=== PATIENT | male | born 1960 | race African-American/Black ===

== ENCOUNTER 2019-08-01 19:58 | Emergency (ER) | payer OTHER, SELFPAY ==
--- NOTE | ~2019-08-01 | XR_ITS ---
EXAMINATION: XR shoulder LT min 2V EXAM DATE: 08/01/2019 20:23 INDICATION: Left shoulder pain. Possible dislocation. TECHNIQUE: The following left shoulder projections obtained: frontal projection with internal rotatio n, frontal projection with external rotation, Grashey, and scapular Y view (4+ views). Comparison is made to prior examination from 06/01/2017. FINDINGS: There is large chronic left humeral head Hill-Sachs compression deformity, unchanged compar ed to 2018. There are no acute fractures or dislocations identified. There is no subcutaneous gas. The soft tissue is unremarkable. There are no radiopaque foreign bodies. There is mild acromioclav icular and glenohumeral primary osteoarthritis. There are old left rib fractures posteriorly. IMPRESSION: 1. Chronic left Hill-Sachs deformity. 2. Mild shoulder osteoarthritis. Reviewed, dictated and finalized at location A.
[2019-08-01 19:56] VITALS: BP 129/92; PULSE 84; RESP 18; TEMP 36.8; O2SAT 98
--- NOTE | 2019-08-01 20:03 | ED.UPPEXIN ---
HPI - Extremity Injury (Upper) General Chief Complaint: Extremity Injury, Upper <Talha Perez PA-C - Last Filed: 08/01/19 20:31> Stated Complaint: dislocated shoulder <Talha Perez PA-C - Last Filed: 08/01/19 20:31> Source: patient <Talha Perez PA-C - Last Filed: 08/01/19 20:31> Mode of arrival: EMS <Talha Perez PA-C - Last Filed: 08/01/19 20:31> Limitations: no limitations <Talha Perez PA-C - Last Filed: 08/01/19 20:31> History of Present Illness HPI narrative: Patient is a 59-year-old male who presents to emergency department for evaluation of dislocated shoulder patient was moving the shoulder today when it dislocated 2 hours ago. Patient was seen at urgent care was referred to emergency department for evaluation and reduction. On arrival patient notes moderate aching pain to the left shoulder worse with manipulation activity. Patient denies radicular symptoms paresthesias recent illness or sick contacts <Talha Perez PA-C - Last Filed: 08/01/19 20:31> Related Data Allergies/Adverse Reactions: Allergies Allergy/AdvReac Type Severity Reaction Status Date / Time No Known Allergies Allergy Unknown Verified 03/28/18 16:55 <Talha Perez PA-C - Last Filed: 08/01/19 20:31> Review of Systems Review of Systems: All systems reviewed & are unremarkable except as noted in HPI and below <Talha Perez PA-C - Last Filed: 08/01/19 20:31> PMFSH Past Medical History Medical History: Medical History (Updated 08/01/19 @ 20:07 by Talha Perez PA-C) Shoulder dislocation <Talha Perez PA-C - Last Filed: 08/01/19 20:31> Social History Social History: Social History (Updated 08/01/19 @ 20:04 by Talha Perez PA-C) Smoking status: Never smoker <Talha Perez PA-C - Last Filed: 08/01/19 20:31> Exam Narrative: Exam Narrative: GENERAL: Well-appearing, well-nourished, and in no acute distress. HEAD: Normocephalic, atraumatic. EYES: PERRLA and EOMI. ENT: Nares clear, no rhinorrhea or epistaxis. Mucous membranes moist. CHEST: Clear to auscultation. No respiratory distress. No wheezes rales or rhonchi HEART: Regular rate and rhythm. No murmur heard. Normal peripheral pulses. EXTREMITIES: Tenderness deformity of the left shoulder which was manually reduced normal range of motion after reduction SKIN: Warm, dry, no rash. NEURO: No focal deficits. Alert and oriented x3. Neurovascularly intact. Capillary refill less than 2 seconds PSYCH: Normal mood and affect. <Talha Perez PA-C - Last Filed: 08/01/19 20:31> Course Course Emergency Course: Patient in the room in no distress aware of case findings treatment plan and diagnosis agreeing to follow-up as directed <MAX Sosa Last Filed: 08/01/19 20:31> Vital Signs Vital signs: Vital Signs Temperature 36.8 C 08/01/19 19:56 Pulse Rate 84 08/01/19 19:56 Respiratory Rate 18 08/01/19 19:56 Blood Pressure 129/92 H 08/01/19 19:56 Pulse Oximetry 98 08/01/19 19:56 Temperature 36.8 C 08/01/19 19:56 Pulse Rate 84 08/01/19 19:56 Respiratory Rate 18 08/01/19 19:56 Blood Pressure 129/92 H 08/01/19 19:56 Pulse Oximetry 98 08/01/19 19:56 <MAX Sosa Last Filed: 08/01/19 20:31> Vital Signs Temperature 36.8 C 08/01/19 19:56 Pulse Rate 84 08/01/19 19:56 Respiratory Rate 18 08/01/19 19:56 Blood Pressure 129/92 H 08/01/19 19:56 Pulse Oximetry 98 08/01/19 19:56 Temperature 36.8 C 08/01/19 19:56 Pulse Rate 84 08/01/19 19:56 Respiratory Rate 18 08/01/19 19:56 Blood Pressure 129/92 H 08/01/19 19:56 Pulse Oximetry 98 08/01/19 19:56 <Kiera Guillen MD - Last Filed: 08/01/19 22:26> Procedures Orthopedic Joint Reduction Joint #1: Orthopedic Joint Reduction Date: 08/01/19 <Talha Perez PA-C - Last Filed: 08/01/19 20:31> Orthopedic Joint Redu
[2019-08-01] MEDS: IBUPROFEN 600 MG TABLET PO (20:20)
== END 2019-08-01 21:10 | disposition home or self-care (01) ==
PROVIDERS: Emergency Provider Emergency Medicine
DX: M24.412 Recurrent dislocation, left shoulder (principal); M19.012 Primary osteoarthritis, left shoulder
CPT/HCPCS: 23650; 73030; 99285; A9270

== ENCOUNTER 2020-01-13 19:26 | Emergency (ER) | payer OTHER, SELFPAY ==
--- NOTE | ~2020-01-13 | XR_ITS ---
EXAMINATION: XR shoulder LT min 2V DATE: 01/13/2020 20:17 INDICATION: Postreduction left shoulder dislocation TECHNIQUE: AP and transscapular Y views of the left shoulder were obtained. COMPARISON: None FINDINGS: Successful reduction of the previously dislocated left glenohumeral joint which is now in normal alig nment. Again seen is a chronic Hill-Sachs fracture deformity at the posterolateral aspect of the nima ral head. No other fractures identified. Specifically the rim of the glenoid appears to remain intact . Small marginal osteophytes along the posterior glenoid. Acromioclavicular joint is normal. Several old healed posterior left rib fractures. Visualized portions of the lungs are clear. IMPRESSION: Successful reduction of previous a dislocated left glenohumeral joint. No acute fractures identified. Reviewed, dictated and finalized at [facility]. 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
--- NOTE | ~2020-01-13 | XR_ITS ---
EXAMINATION: XR shoulder LT min 2V DATE: 01/13/2020 19:45 INDICATION: Left shoulder dislocation TECHNIQUE: AP and transscapular Y views of the left shoulder were obtained. COMPARISON: None FINDINGS: Anterior dislocation of the left humeral head with respect to the glenoid. There is a chronic Hill-Sa chs fracture deformity which is also evident on an earlier radiograph dated 08/11/2019. No definite ac oneida fracture identified. Acromioclavicular joint space is normal. Visualized lungs are clear.. IMPRESSION: Anterior left glenohumeral dislocation. Reviewed, dictated and finalized at location H. AL AMALGAM PROCESSOR
[2020-01-13 19:32] VITALS: BP 152/102; PULSE 95; RESP 18; TEMP 36.9; O2SAT 100
--- NOTE | 2020-01-13 19:38 | ED.UPPEXIN ---
HPI - Extremity Injury (Upper) General Chief Complaint: Extremity Injury, Upper <Jerry Hart MD - Last Filed: 01/13/20 20:41> Stated Complaint: shoulder pain <Jerry Hart MD - Last Filed: 01/13/20 20:41> Time Seen by Provider: 01/13/20 19:32 <Jerry Hart MD - Last Filed: 01/13/20 20:41> History of Present Illness HPI narrative: Patient is a 5-year-old male who presents ER with left shoulder dislocation. This is happened to him previously. Reports she was trying to pick himself up out of bed when his shoulder popped forwards. No numbness or tingling. No other issues. Has not seen orthopedics for this. <Jerry Hart MD - Last Filed: 01/13/20 20:41> Related Data Home Medications: Home Medications Medication Instructions Recorded Confirmed amlodipine 01/13/20 gabapentin 01/13/20 potassium chloride meq PO 01/13/20 sildenafil 01/13/20 <Jerry Hart MD - Last Filed: 01/13/20 20:41> Allergies/Adverse Reactions: Allergies Allergy/AdvReac Type Severity Reaction Status Date / Time No Known Allergies Allergy Unknown Verified 01/13/20 19:52 <Jerry Hart MD - Last Filed: 01/13/20 20:41> Review of Systems Musculoskeletal: Musculoskeletal: Reports arthralgias <Jerry Hart MD - Last Filed: 01/13/20 20:41> Comments: left shoulder deformity. <Jerry Hart MD - Last Filed: 01/13/20 20:41> Neurologic: Denies focal weakness and Denies numbness <Jerry Hart MD - Last Filed: 01/13/20 20:41> PMF Past Medical History Medical History: Medical History (Updated 01/13/20 @ 20:38 by Jerry Hart MD) Glaucoma Hyperlipidemia Hypertension Shoulder dislocation <Jerry Hart MD - Last Filed: 01/13/20 20:41> Surgical History Surgical History: Surgical History (Updated 01/13/20 @ 20:12 by Jerry Hart MD) No history of previous surgery <Jerry Hart MD - Last Filed: 01/13/20 20:41> Social History Social History: Social History (Updated 01/13/20 @ 20:13 by Jerry Hart MD) Smoking status: Never smoker Alcohol intake: current Alcohol use details: h/o alcoholism Substance use type: marijuana <Jerry Hart MD - Last Filed: 01/13/20 20:41> Exam Narrative: Exam Narrative: GENERAL: Well-appearing, well-nourished, and in no acute distress. HEAD: Normocephalic, atraumatic. CHEST: Clear to auscultation. No respiratory distress. HEART: Regular rate and rhythm. No murmur heard. Normal peripheral pulses. EXTREMITIES: Deformity of the left shoulder. Neurovascular tact distal to this. Limited range of motion of that shoulder due to dislocation. NEURO: Alert and oriented x3. PSYCH: Normal mood and affect. <Jerry Hart MD - Last Filed: 01/13/20 20:41> Course Course Emergency Course: Shoulder reduced. D/c with shoulder immobilizer and ortho f/u. <Jerry Hart MD - Last Filed: 01/13/20 20:41> Vital Signs Vital signs: Vital Signs Temperature 98.5 F 01/13/20 19:32 Pulse Rate 95 01/13/20 19:32 Respiratory Rate 18 01/13/20 19:32 Blood Pressure 152/102 H 01/13/20 19:32 Pulse Oximetry 100 01/13/20 19:32 Temperature 98.5 F 01/13/20 19:32 Pulse Rate 95 01/13/20 19:32 Respiratory Rate 18 01/13/20 19:32 Blood Pressure 152/102 H 01/13/20 19:32 Pulse Oximetry 100 01/13/20 19:32 <Jerry Hart MD - Last Filed: 01/13/20 20:41> Vital Signs Temperature 98.5 F 01/13/20 19:32 Pulse Rate 95 01/13/20 19:32 Respiratory Rate 18 01/13/20 19:32 Blood Pressure 152/102 H 01/13/20 19:32 Pulse Oximetry 100 01/13/20 19:32 Temperature 98.5 F 01/13/20 19:32 Pulse Rate 95 01/13/20 19:32 Respiratory Rate 18 01/13/20 19:32 Blood Pressure 152/102 H 01/13/20 19:32 Pulse Oximetry 100 01/13/20 19:32 <Familia Alcocer, - Last Filed: 01/13/20 20:20> Procedures Orthopedic J
[2020-01-13] MEDS: MORPHINE SULFATE (*CRX) 4 MG/ML INJ IV PUSH (19:49)
[2020-01-13 20:45] VITALS: BP 137/86; PULSE 76; RESP 16; TEMP 36.6; O2SAT 100
== END 2020-01-13 20:45 | disposition home or self-care (01) ==
PROVIDERS: Emergency Provider Emergency Medicine
DX: M24.412 Recurrent dislocation, left shoulder (principal); E78.5 Hyperlipidemia, unspecified; I10 Essential (primary) hypertension; H40.9 Unspecified glaucoma
CPT/HCPCS: 23650; 73030; 96374; 99285; J2270

== ENCOUNTER 2020-03-23 14:00 | Emergency (ER) | payer OTHER, SELFPAY ==
--- NOTE | ~2020-03-23 | XR_ITS ---
XR shoulder LT min 2V DATE: 03/23/2020 14:49 INDICATION: Dislocation TECHNIQUE: 2 views COMPARISON: 01/13/2020 postreduction left shoulder FINDINGS: There is anterior dislocation at the glenohumeral joint, the humeral head in subcoracoid po sition. No acute fracture is evident. Normal alignment at the acromioclavicular joint. IMPRESSION: Anterior glenohumeral joint dislocation Reviewed, dictated and finalized at location A. 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
[2020-03-23 14:12] VITALS: BP 121/73; PULSE 81; RESP 16; TEMP 36.2; O2SAT 96
--- NOTE | 2020-03-23 15:05 | ED.UPPEXIN ---
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 This is the third time something similar to that has happened in about the last 2 years He reports that the shoulder is always been easy to pop back in and he does not want to be put to sleep for it At some point he was probably referred to orthopedics he does not exactly remember but he does know that he could never get a hold of somebody's office and has not ever made a follow-up appointment He does not have any numbness or weakness or neurologic symptoms in the hand or arm MD complaint: injury to: left and shoulder Related Data Home Medications Medication Instructions Recorded Confirmed amlodipine 01/13/20 gabapentin 01/13/20 potassium chloride meq PO 01/13/20 sildenafil 01/13/20 Allergies Allergy/AdvReac Type Severity Reaction Status Date / Time No Known Allergies Allergy Unknown Verified 03/23/20 14:14 Review of Systems Musculoskeletal: Musculoskeletal: Reports no additional musculoskeletal complaints, Reports arthralgias and Reports joint swelling Neurologic: Denies focal weakness and Denies numbness PMFSH Past Medical History Medical History (Updated 03/23/20 @ 15:16 by Uday Franco MD) Glaucoma Hyperlipidemia Hypertension Shoulder dislocation Surgical History Surgical History (Updated 01/13/20 @ 20:12 by Jerry Hart MD) No history of previous surgery Social History Social History (Updated 01/13/20 @ 20:13 by Jerry Hart MD) Smoking status: Never smoker Alcohol intake: current Substance use type: marijuana Gender identity (if verbalized by the patient): Male Exam Const: General: no acute distress, well developed and awake Orientation/consciousness: patient oriented x3 (alert) Limitations: no limitations HENMT: Head: normocephalic and atraumatic Ears: external ears normal General nose exam: No nasal discharge present and no epistaxis Face and sinus: face symmetric Eyes: Conjunctivae: conjunctivae normal Sclera: sclerae normal EOM: EOMs intact bilaterally Neck: Neck: normal visual inspection, supple and no JVD Chest: Chest palpation & inspection: deferred Resp: Effort & Inspection: normal respiratory effort and not tachypneic Auscultation: other (BS =) Cardio: Heart sounds: no gallops GI: Inspection: normal to inspection Back/Spine/Pelvis: Thoracic/Lumbar Spine: thoracic and lumbar spine normal to inspection Skin: General skin exam: normal color and no rashes or lesions noted Neuro: General: patient oriented x3 (alert), moves all extremities and no focal motor deficits Cranial nerves: Yes facial symmetry Speech: normal speech Extrem: General: full ROM Other: Apparent anterior left shoulder dislocation, reduced ROM, intact distal pulses and nl sensation Psych: Affect: normal affect Course Vital Signs Vital signs: Vital Signs Temperature 36.2 C L 03/23/20 14:12 Pulse Rate 81 03/23/20 14:12 Respiratory Rate 16 03/23/20 14:12 Blood Pressure 121/73 03/23/20 14:12 Pulse Oximetry 96 03/23/20 14:12 Temperature 36.2 C L 03/23/20 14:12 Pulse Rate 81 03/23/20 14:12 Respiratory Rate 16 03/23/20 14:12 Blood Pressure 121/73 03/23/20 14:12 Pulse Oximetry 96 03/23/20 14:12 Procedures Orthopedic Joint Reduction Joint #1: Orthopedic Joint Reduction Date: 03/23/20 Orthopedic Joint Reduction Time: 15:00 Time Out Performed: Yes Side: left Joint Reduction Location: shoulder Analgesia: none Pre-Procedure Neuro Vascular Exam: normal Local Anesthesia: none
== END 2020-03-23 15:26 | disposition home or self-care (01) ==
PROVIDERS: Emergency Provider Emergency Medicine
DX: M24.412 Recurrent dislocation, left shoulder (principal); H40.9 Unspecified glaucoma; E78.5 Hyperlipidemia, unspecified; I10 Essential (primary) hypertension
CPT/HCPCS: 23650; 73030; 99285

== ENCOUNTER 2020-08-06 13:47 | Emergency (ER) | payer OTHER, SELFPAY ==
--- NOTE | ~2020-08-06 | CT_ITS ---
EXAMINATION: CTA chest PE protocol EXAM DATE: 08/06/2020 16:06 INDICATION: Shortness of breath with lower extremity swelling. TECHNIQUE: Spiral CTA of the chest (pulmonary arteries) was performed with 100 cc Omnipaque 350 intr avenous contrast injection. Images were acquired during the pulmonary arterial phase. Coronal maxi mum intensity projection 3D-reconstructions were created by the technologist on dedicated workstation . Axial, coronal and sagittal reformatted images were reviewed. The dose-length product (DLP) for t his examination was 412.16 mGy-cm. The exposure was tailored according to patient size (auto mA exp osure control), and iterative reconstruction (ASIR) was used as additional dose reduction technique. Comparison is made to prior examination from 1959. FINDINGS: Tracheostomy tube. Pulmonary arteries are well opacified and without intraluminal filling d efects. No thoracic aortic dissection. Some right apical scarring. Mild emphysema. There are no p leural or pericardial effusions. Tracheobronchial tree is patent. There is no mediastinal, hilar or axillary lymphadenopathy. There is no pneumothorax. The main, central pulmonary arteries are di lated which can indicate elevated pulmonary arterial pressure, pulmonary arterial hypertension. Hear t normal in size. No evidence of coronary arterial calcification. Upper abdomen is unremarkable. No osteoblastic or osteolytic lesions identified. There are old left rib fractures. IMPRESSION: No acute cardiopulmonary findings. Dilated pulmonary arteries. Mild emphysema. Reviewed, dictated and finalized at location B.
--- NOTE | ~2020-08-06 | US_ITS ---
EXAMINATION: US venous doppler LE EXAM DATE: 08/06/2020 15:44 INDICATION: Bilateral leg edema. TECHNIQUE: Multiple grayscale, color flow and Doppler images of the lower extremity deep venous syste ms bilaterally were obtained and reviewed. There is no prior study for comparison. FINDINGS: Right side: The right common femoral, femoral and profunda veins demonstrate normal color flow, respi ratory variation, augmentation and compressibility. Compressibility, color flow confirmed within the right popliteal, posterior tibial, peroneal, and greater saphenous veins. Left side: The left common femoral, femoral and profunda veins demonstrate normal color flow, respira tory variation, augmentation and compressibility. Compressibility, color flow confirmed within the l eft popliteal, posterior tibial, peroneal, and greater saphenous veins. IMPRESSION: 1. No lower extremity deep venous thrombosis bilaterally. Reviewed, dictated and finalized at location B.
[2020-08-06 13:51] VITALS: BP 114/74; PULSE 103; RESP 20; TEMP 36.7; O2SAT 97
[2020-08-06 14:26] VITALS: BP 117/76; PULSE 102; RESP 13; O2SAT 100
--- NOTE | 2020-08-06 14:40 | ED.GENADULT ---
HPI - General Adult General Chief complaint: Unspecified Stated complaint: swelling to feet Time Seen by Provider: 08/06/20 14:39 Source: patient Mode of arrival: ambulatory Limitations: no limitations History of Present Illness HPI narrative: Patient is a 60-year-old male with a history of throat cancer, status post tracheostomy, chemotherapy and radiation, currently in remission, who presents for evaluation of lower leg swelling and shortness of breath. Patient reports bilateral lower leg swelling, greater on the right side when compared to the left. He reports swelling all the way up to his right knee. He reports mild redness without calf pain. No history of DVT or PE. No history of coagulopathy. No recent car or air travel. Patient with numerous hospitalizations over the course of the past 5 months, most notably for cancer treatment at [facility]. All the patient's physicians, hematology, oncology are at that location. Patient denies fever, chills, cough or hemoptysis. No history of heart failure. Related Data Home Medications Medication Instructions Recorded Confirmed amlodipine 01/13/20 gabapentin 01/13/20 potassium chloride meq PO 01/13/20 sildenafil 01/13/20 Allergies Allergy/AdvReac Type Severity Reaction Status Date / Time No Known Allergies Allergy Unknown Verified 03/23/20 14:14 Review of Systems Review of Systems: Narrative: CONSTITUTIONAL: Denies fever, chills, or sweats. EYES: Denies visual changes, redness, or discharge. ENT: Denies rhinorrhea, congestion, sore throat, or otalgia. CARDIOVASCULAR: Denies chest pain, palpitations, reports lower leg swelling RESPIRATORY: Denies cough,denies dyspnea currently in room GASTROINTESTINAL: Denies abdominal pain, nausea, vomiting, or diarrhea. GENITOURINARY: Denies dysuria or hematuria. SKIN: Denies rash or itching. MUSCULOSKELETAL: Denies back pain, joint pain, or myalgia. NEUROLOGIC: Denies headache, numbness, or weakness. [facility] Past Medical History Medical History (Updated 08/06/20 @ 16:55 by Kiera Guillen MD) Glaucoma Hyperlipidemia Hypertension Shoulder dislocation Surgical History Surgical History (Updated 01/13/20 @ 20:12 by Jerry Hart MD) No history of previous surgery Social History Social History (Updated 08/06/20 @ 15:06 by Kiera Guillen MD) Smoking status: Former smoker Alcohol intake: current Substance use type: marijuana Gender identity (if verbalized by the patient): Male Exam Narrative: Exam Narrative: GENERAL: Awake, alert, conversant HEAD: Normocephalic, atraumatic. EYES: PERRLA and EOMI. ENT: Nares clear, no rhinorrhea or epistaxis. Mucous membranes moist. NECK: Supple. Tracheostomy tube in place. CHEST: No respiratory distress, breathing even and non labored HEART: Regular rate, sinus rhythm ABDOMEN:Non distended, non tender. G-tube in place. EXTREMITIES: Normal range of motion. Right lower extremity nonpitting edema to the knee, with mild erythema, no significant induration or streaking erythema. No abscess or ecchymoses. No petechiae. No evidence of necrotizing infection. No calf tenderness bilaterally. SKIN: Warm, dry, no rash. NEURO:No focal deficits. Alert and oriented x3 Course Vital Signs Vital signs: Vital Signs Temperature 36.7 C 08/06/20 13:51 Pulse Rate 103 H 08/06/20 13:51 Respiratory Rate 20 08/06/20 13:51 Blood Pressure 114/74 08/06/20 13:51 Pulse Oximetry 97 08/06/20 13:51 Temperature 36.7 C 08/06/20 13:51 Pulse Rate 96 08/06/20 16:16 Respiratory Rate 17 08/06/20 16:16 Blood Pressure 114/79 08/06/20 16:16 Pulse Oximetry 98 08/06/20 16:16 Medical Decision Making MDM Narrative Medical decision making narrative: Patient presented for evaluation of bilateral lower leg swelling, greater on the right than on the left. At the time of assessment, patient denies any other acute complaints. IV
--- NOTE | 2020-08-06 15:07 | ECG_ITS ---
Measurements Intervals [place] Rate: 86 P: 63 VA: 153 QRS: 23 QRSD: 84 T: 36 QT: 366 QTc: 440 Interpretive Statements SINUS RHYTHM MINIMAL Q WAVES- INFERIOR LEADS BORDERLINE ECG Electronically Signed On 08-06-2020 17:08:57 CDT by Pawel Smith D.O.
[2020-08-06 15:31] LABS: Basophils Percent Auto 0.2 % (0.2-1.2); Eosinophils Absolute Auto 0.1 K/mm3 (0-0.3); Eosinophils Percent Auto 1.4 % (0-4.4); Hematocrit 35.6 % (42.0-52.0); Hemoglobin 11.3 g/dL (14.0-18.0); Immature Granulocyte Absolute 0.06 K/mm3 (0.00-0.031); Immature Granulocyte Percent A 0.7 % (0-0.5); Lymphocytes Absolute Auto 0.58 K/mm3 (0.9-3.2); Mean Corpuscular HGB Conc 31.7 g/dl (32-36); Mean Corpuscular Hemoglobin 28.8 pg (26-34); Mean Corpuscular Volume 90.6 fl (80-100); Mean Platelet Volume 8.7 fl (7.4-10.4); Monocytes Absolute Auto 1.3 K/mm3 (0.1-0.6); Monocytes Percent Auto 15.1 % (2.6-8.5); Neutrophils Absolute Auto 6.3 K/mm3 (1.3-6.7); Neutrophils Percent Auto 75.6 % (45.5-73.1); Platelet Count Result 256 k/mm3 (150-375); Red Blood Count 3.93 M/mm3 (4.6-6.20); Red Cell Distribution Width 15.7 % (11.5-14.5); White Blood Count 8.3 K/mm3 (4.5-10.0)
[2020-08-06 15:40] LABS: Anion Gap 9 mmol/L (8-16); Blood Urea Nitrogen 38 mg/dL (9-20); Calcium 9.2 mg/dL (8.4-10.2); Carbon Dioxide 28 mmol/L (22-30); Chloride 99 mmol/L (98-107); Estimated CRCL calculation 51 ml/min; Estimated Glomerular Filt Rate 54; Glucose 99 mg/dL (75-110); Potassium 4.6 mmol/L (3.4-5.0); Sodium 136 mmol/L (137-145)
[2020-08-06 15:41] LABS: INR 0.9; Prothrombin Time 12.7 Seconds (11.1-14.7)
[2020-08-06 15:53] LABS: NT Pro B Type Natriuretic Pept 56 pg/mL (5-100); Troponin I < 0.012 ng/mL (0.000-0.034)
[2020-08-06 16:16] VITALS: BP 114/79; PULSE 96; RESP 17; O2SAT 98
[2020-08-06 17:20] VITALS: BP 127/83; PULSE 98; RESP 18; O2SAT 100
== END 2020-08-06 17:21 | disposition home or self-care (01) ==
PROVIDERS: Emergency Provider Emergency Medicine
DX: R60.0 Localized edema (principal); I12.9 Hypertensive chronic kidney disease with stage 1 through stage 4 chronic kidney disease, or unspecified chronic kidney disease; N18.9 Chronic kidney disease, unspecified; Z85.819 Personal history of malignant neoplasm of unspecified site of lip, oral cavity, and pharynx; Z92.21 Personal history of antineoplastic chemotherapy; Z92.3 Personal history of irradiation; E78.5 Hyperlipidemia, unspecified; H40.9 Unspecified glaucoma; Z87.891 Personal history of nicotine dependence; Z93.1 Gastrostomy status; R94.31 Abnormal electrocardiogram [ECG] [EKG]; J43.9 Emphysema, unspecified
CPT/HCPCS: 36415; 71275; 80048; 83880; 84484; 85025; 85610; 93005; 93970; 99284; Q9967

== ENCOUNTER 2020-09-17 15:25 | Emergency (ER) | payer OTHER, SELFPAY ==
--- NOTE | ~2020-09-17 | XR_ITS ---
EXAMINATION: XR G tube replacement w image INDICATION: Gastrostomy tube placement TECHNIQUE: Supine view of the upper abdomen is obtained on a single radiograph. COMPARISON: None available FINDINGS: A small amount of contrast has been injected into a gastrostomy which is seen within the st omach. The visualized lung bases are clear. IMPRESSION: 1. Gastrostomy tube in the stomach. Reviewed, dictated and finalized at location A.
[2020-09-17 16:01] VITALS: BP 128/70; PULSE 109; RESP 18; TEMP 36.8; O2SAT 98
--- NOTE | 2020-09-17 16:21 | ED.GENADULT ---
HPI - General Adult General Chief complaint: Unspecified Stated complaint: G TUBE FELL OUT Time Seen by Provider: 09/17/20 16:14 Source: patient Mode of arrival: ambulatory Limitations: no limitations History of Present Illness HPI narrative: Patient is a 60 year old male who presents for g tube that has come out. Patient reports placed at [facility] approximately 1 year ago. Patient reports came out this morning during tube feeding. Patient reports taping area off. Patient reports that this has not happened in the past. Patient denies pain. Patient reports g tube placed because of throat cancer. Patient also has a tracheostomy. He denies all other complaints at this time. Related Data Home Medications Medication Instructions Recorded Confirmed amlodipine 01/13/20 gabapentin 01/13/20 potassium chloride meq PO 01/13/20 sildenafil 01/13/20 Allergies Allergy/AdvReac Type Severity Reaction Status Date / Time No Known Allergies Allergy Unknown Verified 03/23/20 14:14 Review of Systems Review of Systems: Narrative: CONSTITUTIONAL: Denies fever, chills, or sweats. EYES: Denies visual changes, redness, or discharge. ENT: Denies rhinorrhea, congestion, sore throat, or otalgia. CARDIOVASCULAR: Denies chest pain, palpitations, or edema. RESPIRATORY: Denies cough or dyspnea. GASTROINTESTINAL: Denies abdominal pain, nausea, vomiting, or diarrhea. Reports G-tube dislodged. GENITOURINARY: Denies dysuria or hematuria. SKIN: Denies rash or itching. MUSCULOSKELETAL: Denies back pain, joint pain, or myalgia. NEUROLOGIC: Denies headache, numbness, dizziness, or weakness. PSYCHIATRIC: Denies anxiety or depression. [facility] Past Medical History Medical History Glaucoma Hyperlipidemia Hypertension Shoulder dislocation Surgical History Surgical History No history of previous surgery Social History Social History Smoking status: Former smoker Alcohol intake: current Alcohol use details: h/o alcoholism Substance use type: marijuana Gender identity (if verbalized by the patient): Male Comments At the time of signature, I have reviewed and agree with nursing past medical, surgical, social, and family history unless otherwise noted. Please see nursing chart for further information. There is no relevant family history pertinent to the presenting complaint. Exam Narrative: Exam Narrative: GENERAL: Well-appearing, well-nourished, and in no acute distress. HEAD: Normocephalic, atraumatic. EYES: EOMI. No redness or drainage. Conjunctiva are normal. ENT: Mucous membranes pink and moist. CHEST: No respiratory distress. Clear to auscultation. HEART: Regular rate and rhythm. GI: Soft, nontender without rebound, or guarding. MUSCULOSKELETAL: No bony tenderness. EXTREMITIES: Normal range of motion. No edema. SKIN: Warm, dry, no rash. NEURO: No focal deficits. Alert and oriented x3. Gait steady. PSYCH: Normal affect. No signs of depression or anxiety. Course Vital Signs Vital signs: Vital Signs Temperature 36.8 C 09/17/20 16:01 Pulse Rate 109 H 09/17/20 16:01 Respiratory Rate 18 09/17/20 16:01 Blood Pressure 128/70 09/17/20 16:01 Pulse Oximetry 98 09/17/20 16:01 Temperature 36.8 C 09/17/20 16:01 Pulse Rate 109 H 09/17/20 16:01 Respiratory Rate 18 09/17/20 16:01 Blood Pressure 128/70 09/17/20 16:01 Pulse Oximetry 98 09/17/20 16:01 Reviewed Procedures Other Procedure Procedure 1: Other Procedure: Patient's abdomen cleaned and tape removed. 16fr g tube placed by Tavon Perez PA-c. Xray for g tube placement confirmed placement. Patient instructed on care of g tube. Medical Decision Making MDM Narrative Medical decision making narrative: Patient's G-tube was placed, placement confirmed by x-ray. P
== END 2020-09-17 17:39 | disposition home or self-care (01) ==
PROVIDERS: Emergency Provider Nurse Practitioner
DX: Z43.1 Encounter for attention to gastrostomy (principal); E78.5 Hyperlipidemia, unspecified; I10 Essential (primary) hypertension; H40.9 Unspecified glaucoma; Z93.0 Tracheostomy status; Z85.819 Personal history of malignant neoplasm of unspecified site of lip, oral cavity, and pharynx; Z87.891 Personal history of nicotine dependence
CPT/HCPCS: 49450; 99284

== ENCOUNTER 2020-09-18 17:01 | Emergency (ER) | payer OTHER, SELFPAY ==
[2020-09-18 17:25] VITALS: BP 116/71; PULSE 107; RESP 22; TEMP 36.4; O2SAT 97
--- NOTE | 2020-09-18 18:12 | PC.NURSE ---
Patient educated on how to access his g tube. This g tube is different that he is previously used to. Patient demonstrated to me he was able to access g tube properly.
--- NOTE | 2020-09-18 18:20 | ED.GENADULT ---
HPI - General Adult General Chief complaint: Unspecified Stated complaint: g-tube clogged Time Seen by Provider: 09/18/20 17:33 Source: patient and RN notes reviewed Mode of arrival: ambulatory Limitations: no limitations History of Present Illness HPI narrative: Patient is a 60-year-old male who presents to emergency department for evaluation of having trouble with his G-tube that was placed yesterday in the emergency department patient was having difficulty figuring out how to use the G-tube. He has no other complaints presents in no distress takes care of his G-tube medications and feedings. Patient denies any nausea vomiting chest pain URI symptoms. Related Data Home Medications Medication Instructions Recorded Confirmed amlodipine 01/13/20 gabapentin 01/13/20 potassium chloride meq PO 01/13/20 sildenafil 01/13/20 Allergies Allergy/AdvReac Type Severity Reaction Status Date / Time No Known Allergies Allergy Unknown Verified 09/18/20 17:34 Review of Systems Review of Systems: All systems reviewed & are unremarkable except as noted in HPI and below PMFSH Past Medical History Medical History Glaucoma Hyperlipidemia Hypertension Shoulder dislocation Surgical History Surgical History No history of previous surgery Social History Social History Smoking status: Former smoker Alcohol intake: current Alcohol use details: h/o alcoholism Substance use type: marijuana Gender identity (if verbalized by the patient): Male Exam Narrative: GENERAL: Well-appearing, well-nourished, and in no acute distress. HEAD: Normocephalic, atraumatic. EYES: PERRLA and EOMI. ENT: Nares clear, no rhinorrhea or epistaxis. Mucous membranes moist. ABDOMEN: Soft, nontender, nondistended EXTREMITIES: Normal range of motion. No edema. SKIN: Warm, dry, no rash. NEURO: No focal deficits. Alert and oriented x3. Cranial nerves II through XII grossly intact PSYCH: Normal mood and affect. Course Course Emergency Course: Patient in the room no distress aware of case findings treatment plan diagnosis. Patient was shown how to use the slip tip syringe is and how to plug up for his tube feedings he feels much more comfortable with this at this time will be discharged home and will follow with the specialist Vital Signs Vital signs: Vital Signs Temperature 97.5 F L 09/18/20 17:25 Pulse Rate 107 H 09/18/20 17:25 Respiratory Rate 22 H 09/18/20 17:25 Blood Pressure 116/71 09/18/20 17:25 Pulse Oximetry 97 09/18/20 17:25 Temperature 97.5 F L 09/18/20 17:25 Pulse Rate 107 H 09/18/20 17:25 Respiratory Rate 22 H 09/18/20 17:25 Blood Pressure 116/71 09/18/20 17:25 Pulse Oximetry 97 09/18/20 17:25 Medical Decision Making MDM Narrative Medical decision making narrative: Patient presented with G-tube malfunction the G-tube is flushing fine he was given instructions on how to use it and feels comfortable with this Vital Signs Vital Signs: Vital Signs Temperature 97.5 F L 09/18/20 17:25 Pulse Rate 107 H 09/18/20 17:25 Respiratory Rate 22 H 09/18/20 17:25 Blood Pressure 116/71 09/18/20 17:25 Pulse Oximetry 97 09/18/20 17:25 Temperature 97.5 F L 09/18/20 17:25 Pulse Rate 107 H 09/18/20 17:25 Respiratory Rate 22 H 09/18/20 17:25 Blood Pressure 116/71 09/18/20 17:25 Pulse Oximetry 97 09/18/20 17:25 Discharge Plan Discharge Clinical Impression: Gastrostomy tube dysfunction Patient Disposition: Home, Self-Care Condition: Stable Instructions: Antibiotic Form Additional Instructions: Follow up with your primary care doctor and specialist tommorrow to set up for reevaluation. Go to ER for worsening pain, nausea/vomitting, fever/chills, chest pain, shortness of breath, blood in stool
== END 2020-09-18 18:44 | disposition home or self-care (01) ==
PROVIDERS: Emergency Provider Emergency Medicine
DX: T85.528A Displacement of other gastrointestinal prosthetic devices, implants and grafts, initial encounter (principal); E78.5 Hyperlipidemia, unspecified; I10 Essential (primary) hypertension; H40.9 Unspecified glaucoma
CPT/HCPCS: 99282

== ENCOUNTER 2020-11-12 10:17 | Emergency (ER) | payer OTHER, SELFPAY ==
[2020-11-12 10:13] VITALS: BP 0/0; PULSE 0; RESP 12; O2SAT 90
--- NOTE | 2020-11-12 10:36 | ED.CPR ---
HPI - CPR General Chief Complaint: Cardiac Arrest/CPR Stated Complaint: cardiac arrest Time Seen by Provider: 11/12/20 10:36 Source: EMS History of Present Illness HPI narrative: Witnessed cardiac arrest. Patient has a history of unknown cancer and a trach in place. Patient collapsed at home EMS was called EMS arrived little bit before 10 noted the patient was in PEA initiated ACLS. They did note difficulties with the trach having resistance with bagging patient receive multiple rounds of epinephrine prior to the ER remained in PEA throughout EMS transport Review of Systems Review of Systems: ROS unobtainable: Yes unobtainable due to medical condition Exam Narrative: GENERAL: Chronically ill-appearing unresponsive HEAD: Normocephalic, atraumatic. EYES: Pupils fixed and dilated NECK: Trach in place CHEST: Aeration in all lung matthews HEART: No pulse ABDOMEN: G-tube in place EXTREMITIES: IO lower extremity SKIN: Warm, dry, no rash. NEURO: Unresponsive Course Vital Signs Vital signs: Vital Signs Pulse Rate 0 L 11/12/20 10:13 Respiratory Rate 12 11/12/20 10:13 Blood Pressure 0/0 L 11/12/20 10:13 Pulse Oximetry 90 11/12/20 10:13 Pulse Rate 0 L 11/12/20 10:13 Respiratory Rate 12 11/12/20 10:13 Blood Pressure 0/0 L 11/12/20 10:13 Pulse Oximetry 90 11/12/20 10:13 MDM - Cardiac Arrest/CPR MDM Narrative Medical decision making narrative: Patient was brought in in PEA arrest. On initial rhythm check patient was in asystole ACLS was continued with epinephrine and amiodarone and bicarb. Primary goal on presentation was to clear the tracheostomy tube per EMS report they are having difficulties. The trach tube was suction and a mild amount of blood was removed it was irrigated with normal saline and blood and normal saline were removed. After initial suctioning there is less resistance with bagging and there were noted to be bilateral breath sounds. We continue with multiple rounds of epinephrine, amiodarone, bicarb. Patient had 1 rhythm of V. fib which was defibrillated but continued in asystole. Patient had a predominant rhythm of PEA versus asystole for greater than 30 minutes despite his airway being cleared he continued to have asystole. Given the persistence of asystole, lack response to aggressive efforts to obtain a life-sustaining rhythm further efforts were discontinued. Discharge Plan Discharge Clinical Impression: Cardiac arrest Patient Disposition: Condition: Follow-up/Referrals: [facility] [Primary Care Provider] - Time of Disposition: 10:30
--- NOTE | 2020-11-12 11:02 | PC.NURSE ---
1010 code blue called by EMS out in the field 1013 EMS arrived, ACLS protocols being followed, CPR has been in progress for approx 17mins. 3 epis were given [employer]. Pt. was in asystole the entire time for EMS, patient being mechanically ventilated by a BVM through their trach. EMS attempted to suction trach with difficulty. Blood glucose 202. IO inserted in the left tibia by EMS. CPR being performed by mechanical compressions by ARINA device. 1015 Epi given via IO, pulse check, no pulse, patient in asystole. CPR continued via ARINA. Ventilations continued via BVM with pt. trach. 1018 EPI given via IO, trach suctioned by MD with trach suction catheter, blood clot removed out of trach 1019 Pulse check, no pulse, pt. in asystole, CPR continued 1020 MD ordered amiodarone 300mg. Medication given via IO 1021 Epi given via IO, EtCO2 applied, initial level 16 mmhg, epi given via IO, ventilations confirmed with bilateral breath sounds and EtCO2. 1022 pulse check, no pulse, pt. is in asystole, CPR continued. 1024 MD ordered 1amp of sodium bicarb, given IO, Epi given via IO 1024 pulse check, no pulse, pt. in PEA, CPR continued 1026 pulse check, no pulse, pt. in asystole, CPR continued 1027 Epi given via IO 1028 Pulse check, no pulse, Pt. is in polymorphic ventricular tachycardia, Pt. defibrillated at 200J, CPR continued. 1030 pulse check, no pulse, Pt. is in asystole, cancelled magnesium administration for polymorphic ventricular tachycardia. 1030 CPR stopped, time of . Last EtCO2 was 8mmhg.
--- NOTE | 2020-11-12 11:18 | PC.NURSE ---
1030 [employer] office notified at 1030 and spoke with Rogerio. They will be in en route. 1045 [facility] notified spoke with Yelitza, [facility] will call back. 1118 [employer] office at the patient's bedside
== END 2020-11-12 12:30 | disposition expired ==
PROVIDERS: Emergency Provider Emergency Medicine
DX: I46.9 Cardiac arrest, cause unspecified (principal)
CPT/HCPCS: 92950; 99285; J0171; J0282; J7030; J7060